=== PATIENT | female | born 1970 | race Caucasian/White ===

== ENCOUNTER 2024-06-27 07:55 | Day surgery (SDC) | payer OTHER ==
[2024-06-24 08:39] VITALS: BP 116/75
[~2024-06-27] VITALS: Ht 167.6 cm; Wt 69.0 kg
[~2024-06-27 07:55] MED LIST: CANDICIDAL CAP1 EACH PO; CLONAZEPAM2 MG PO; DHEA25 MG PO; IBLOOD GLUCOSE TEST STRIP 1 EA TEST VI PRN; LACTATED RINGER'S 1,000 ML IV SCH; LEXAPRO20 MG PO; LIDOCAINE HCL 1% 5 ML SDV INJ ONE; MOVE FREE ULTR1 EAC2 PO; MULTI VITAMIN1 EACH PO
[2024-06-27 08:06] VITALS: BP 122/75
[2024-06-27] MEDS ORDERED: [UNRECOGNIZED DRUG - OTHER] PO (08:12)
[2024-06-27] MEDS ORDERED: [UNRECOGNIZED DRUG - CODE] PO (08:13)
[2024-06-27] MEDS ORDERED: [UNRECOGNIZED DRUG - OTHER] PO (08:14)
[2024-06-27] MEDS ORDERED: [UNRECOGNIZED DRUG - OTHER] PO (08:15)
[2024-06-27] MEDS ORDERED: ondansetron HCL 4 MG/2 ML VIAL ONE (09:01)
[2024-06-27] MEDS ORDERED: propofoL 200 MG/20 ML VIAL ONE (09:01)
[2024-06-27] MEDS ORDERED: fentaNYL citrate 100 MCG/2 ML VIAL ONE (09:01)
[2024-06-27] MEDS ORDERED: LIDOCAINE HCL 2% 5 ML SDV ONE (09:01)
--- NOTE | 2024-06-27 09:56 | NUR ---
06/27/24 0956 Jailyn Christian 0950 PT ARRIVED TO PACU AWAKE AND TALKING TO RN. PT ENCOURAGED TO PASS GAS NEEDED. VSS. 0956 PT RESTING WITH EYE CLOSED.
--- NOTE | 2024-06-27 10:10 | NUR ---
0910 AMB TO BR VOIDS QS. DRINKING WATER.
[2024-06-27 10:27] VITALS: BP 112/79
--- NOTE | 2024-06-27 18:15 | OR ---
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 POSTOPERATIVE DIAGNOSES: 1. Mild antral gastritis, CLOtest negative (no H pylori). 2. Normal colon to cecum. PROCEDURES: 1. Esophagogastroduodenoscopy with biopsy. 2. Total colonoscopy to cecum. ANESTHESIA: Intravenous sedation, propofol; Fei Green CRNA INDICATIONS FOR THE PROCEDURE: This 54-year-old white woman is a patient of ANMOL Ashraf. Her daughter Mary, is known to me from the past having undergone bowel resection for Crohn disease and has difficult Crohn disease management in fact. She was recently tested for Sanchez syndrome and found to be positive. On that basis, the patient herself underwent Sanchez testing and was found to be positive as well. Notably, she underwent colonoscopy by me in May 2022 essentially two years ago, which was negative. NCCN guidelines recommend upper endoscopy and colonoscopy under these circumstances. She is to undergo upper endoscopy to assess for upper gastrointestinal polyps or malignancy as well as colonoscopy. The risk of bleeding, infection, and perforation were reviewed with her. She understands and wished to proceed. FINDINGS: Upper endoscopy showed no sign of polyps or neoplasm. There was mild antral gastritis, but no ulceration. CLOtest was negative. On colonoscopy, the prep was good. Complete colonoscopy was undertaken to the cecum, showing no sign of polyps, diverticular formation, colitis, or cancer. DESCRIPTION OF PROCEDURE: The patient was brought to the surgical endoscopy suite and placed in the lateral Electronically Signed By: HUAN BRYSON MD 06/27/24 1815 PATIENT NAME: TRAVIS DOSS OPERATIVE REPORT DATE OF : 72 REPORT #: [id number] PHYSICIAN: HUAN BRYSON MD PCP: WANG LA PA-C REPORT IS CONFIDENTIAL AND NOT TO BE RELEASED WITHOUT AUTHORIZATION [facility] [address] [place], [place] [address] Signed decubitus position given intravenous sedation with propofol sedation technique given the patient's preference and issues related to more conventional IV sedation. After satisfactory sedation, a bite block was placed and an Olympus video upper endoscope passed into the hypopharynx. The arytenoid cartilage appeared to be somewhat asymmetric. The vocal cord function appeared to be normal. The scope was advanced to the esophagus, throughout its length it was normal. The scope was passed to the stomach and ultimately to the duodenum, which was also normal. There was no evidence to duodenal polyps, gastric polyps, or other issue. The pylorus was normal. Biopsies were taken of the antrum as there was mild antral gastritis, but no ulceration. Retroflexed view showed a somewhat poor flap valve, but the proximal stomach showed no polyps or other abnormality. The scope was withdrawn to the distal esophagus, which was essentially normal. Further withdrawal showed no other abnormalities. Plans were then made for colonoscopy. Digital rectal examination was performed, which was normal. An Olympus video colonoscope was passed in the rectum and manipulated throughout the colon, ultimately intubating the cecum itself. The ileocecal valve and appendiceal orifice were normal. The scope was withdrawn from that point with careful inspection, particularly on the right side, again showing no polyps or other abnormality. Retroflexed view of the rectum was normal. Scope was removed, and the patient was taken to the recovery room in good condition. CONCLUDING DIAGNOSES: 1. Mild antral gastritis without polyps or neoplasm. 2. Normal colon. PLAN: We would recommend repeat colonoscopy in one year based on NCCN guidelines. This includes colonoscopy annually after age 40. As regard to the stomach, repeat upper endoscopy every 2-4 years is recommended by NCCN guidelines. As regard to endometrial cancer, consideration is made for endometrial biopsy every 1-2 years starting at age 35 or prophylactic hysterectomy and bilateral salpingo-oophorectomy given her age of 54. Prophylactic bilateral salpingo-oophorectomy is recommended as regard to ovarian cancer prevention. Annual urinalysis starting at age 35 to detect microscopic hematuria is recommended and consideration of MRI or MRCP at age 51 if she has family history of pancreatic cancer (to my knowledge, she does not). Aspirin therapy long-term has been considered a possible benefit in reducing polyps, and I will initiate aspirin 81 mg daily at this time. Electronically Signed By: HUAN BRYSON MD 06/27/24 1815 PATIENT NAME: TRAVIS DOSS OPERATIVE REPORT DATE OF : 72 REPORT #: [id number] PHYSICIAN: HUAN BRYSON MD PCP: WANG LA PA-C REPORT IS CONFIDENTIAL AND NOT TO BE RELEASED WITHOUT AUTHORIZATION [facility] [address] [place], [place] [address] Signed MD GARRETT Cisneros/MODL /[id number] cc: ANMOL Ashraf Copies: ~ Electronically Signed By: HUAN BRYSON MD 06/27/24 1815 PATIENT NAME: TRAVIS DOSS OPERATIVE REPORT DATE OF : 72 REPORT #: [id number] PHYSICIAN: HUAN BRYSON MD PCP: WANG LA PA-C REPORT IS CONFIDENTIAL AND NOT TO BE RELEASED WITHOUT AUTHORIZATION
== END 2024-06-27 10:45 | disposition home or self-care (01) ==
LOC: DS 07:55
PROVIDERS: ATTEND Surgery
PROC: 0DB68ZX Excision of Stomach, Via Natural or Artificial Opening Endoscopic, Diagnostic (ICD-10-PCS; principal; 2024-06-27 08:50)
PROC: 0DJD8ZZ Inspection of Lower Intestinal Tract, Via Natural or Artificial Opening Endoscopic (ICD-10-PCS; 2024-06-27 08:50)
DX: K29.50 Unspecified chronic gastritis without bleeding (principal); Z84.81 Family history of carrier of genetic disease; Z83.79 Family history of other diseases of the digestive system; Z88.2 Allergy status to sulfonamides; Z79.899 Other long term (current) drug therapy; Z80.0 Family history of malignant neoplasm of digestive organs
CPT/HCPCS: 00813; J2003; J2405; J2704; J3010; J7121

== ENCOUNTER 2024-07-29 07:20 | Day surgery (SDC) | payer OTHER ==
[2024-07-24 15:53] VITALS: BP 11/60
[~2024-07-29] VITALS: Ht 167.6 cm; Wt 68.0 kg
[~2024-07-29 07:20] MED LIST changes: +ADULT ASPIRIN R81 MG PO; +[UNRECOGNIZED DRUG - CODE] PO; +[UNRECOGNIZED DRUG - OTHER] PO; +[UNRECOGNIZED DRUG - OTHER] PO; +[UNRECOGNIZED DRUG - OTHER] PO
--- NOTE | 2024-07-29 07:38 | NUR ---
PT NOT AVAILABLE FOR VISIT. PROVIDED PRAYER.
[2024-07-29 07:41] VITALS: BP 126/75
[2024-07-29] MEDS ORDERED: LIDOCAINE HCL 2% 5 ML SDV ONE (08:26)
[2024-07-29] MEDS ORDERED: propofoL 200 MG/20 ML VIAL ONE (08:26)
[2024-07-29] MEDS ORDERED: fentaNYL citrate 100 MCG/2 ML VIAL ONE (08:27)
[2024-07-29] MEDS ORDERED: MIDAZOLAM HCL 2 MG/2 ML VIAL ONE (08:27)
[2024-07-29] MEDS ORDERED: ACETAMINOPHEN 1,000 MG/100 ML VIAL ONE (09:12)
[2024-07-29] MEDS ORDERED: ondansetron HCL 4 MG/2 ML VIAL ONE (09:12)
[2024-07-29] MEDS ORDERED: KETOROLAC TROMETHAMINE 30 MG/ML VIAL ONE (09:12)
[2024-07-29] MEDS ORDERED: ondansetron HCL 4 MG/2 ML VIAL IV PRN (10:15)
[2024-07-29] MEDS ORDERED: NALOXONE HCL 0.4 MG SYR IV PRN (10:15)
[2024-07-29] MEDS ORDERED: MAGNESIUM HYDROXIDE/AL HYDROX 30 ML CUP PO PRN (10:15)
[2024-07-29] MEDS ORDERED: OXYCODONE/APAP 5/325 TAB PO PRN (10:15)
[2024-07-29] MEDS ORDERED: FAMOTIDINE 20 MG/ 2 ML VIAL IV PRN (10:15)
[2024-07-29 11:02] VITALS: BP 125/81
--- NOTE | 2024-07-29 11:08 | NUR ---
07/29/24 1108 Haily Frost 0950- PT PRESENTS TO PACU, SEMI WILSON POSITION. VERY DROWSY BUT WAKES AND ANSWERS QUESTIONS. DENIES PAIN AND NAUSEA. LR INFUSING TO LH IV. BREATHING EVEN AND NON LABORED. ABD SOFT AND NON DISTENDED. NO VAGINAL BLEEDING, ALL MONITORS IN PLACE.
[2024-07-29] MEDS ORDERED: IBUPROFEN 800 MG TAB PO SCH (14:00)
--- NOTE | 2024-07-31 10:05 | PATH ---
[facility] [address] [place], [place] [address] Signed SPECIMEN(S): A ENDOMETRIAL CURETTINGS SPECIMEN SOURCE: A. ENDOMETRIAL CURETTINGS CLINICAL HISTORY: Pap smear HPV; cervical cancer screening. FINAL PATHOLOGIC DIAGNOSIS: Endometrium, curettage: - Fragments of smooth muscle, no endometrium present for evaluation BRP MICROSCOPIC EXAMINATION: Histologic sections of all submitted blocks are examined by light microscopy. These findings, together with the gross examination, support the pathologic diagnosis. GROSS DESCRIPTION: The specimen, labeled and designated "Milka Wesley, endometrial curettings," is received in formalin and consists of multiple fragments of soft haley-red tissue measuring 1.9 x 0.8 x 0.4 cm in aggregate. Entirely submitted in (A1). AB (under the direct supervision of a pathologist) The Gross Description was prepared using a voice recognition system. The report was reviewed for accuracy; however, sound-alike word errors, addition and/or deletions may occur. If there is any question about this report, please contact Client Services. ADDITIONAL NOTES: Immunohistochemical and/or in situ hybridization studies if performed in this case included appropriate positive controls that reacted as expected. This test was developed and its performance characteristics determined by [facility]. It has not been cleared or approved by the U.S. Food and Drug Administration. The FDA has determined that such clearance or approval is not necessary. This test is used for clinical purposes. It should not be regarded as investigational or for research. [facility] is certified under the Clinical Laboratory Improvement Amendments of 1988 (CLIA) as qualified to perform high complexity clinical laboratory testing. PATIENT NAME: TRAVIS WESLEY PATHOLOGY DATE OF : 72 REPORT #: [id number] PHYSICIAN: ARTIE FINN PCP: WANG LA PA-C REPORT IS CONFIDENTIAL AND NOT TO BE RELEASED WITHOUT AUTHORIZATION [facility] [address] [facility] [place] [address] Signed PERFORMING LABORATORY: Technical component was performed by [facility], [address] [place] [address] (CLIA# [id number]). Professional interpretation was performed by [facility] - [facility], [address] [place] [address] (CLIA#: [id number]). Diagnostician: Joseph Cisneros MD Pathologist Electronically Signed 07/31/2024 Copies: ~ PATIENT NAME: TRAVIS WESLEY PATHOLOGY DATE OF : 72 REPORT #: [id number] PHYSICIAN: ARTIE FINN PCP: WANG LA PA-C REPORT IS CONFIDENTIAL AND NOT TO BE RELEASED WITHOUT AUTHORIZATION
--- NOTE | 2024-08-19 10:14 | OR ---
[facility] [address] [place], [place] [address] Signed DATE OF OPERATION: 07/29/2024 SURGEON: Ethan Lema DO PREOPERATIVE DIAGNOSES: 1. Large fibroid uterus. 2. Sanchez syndrome. POSTOPERATIVE DIAGNOSES: 1. Large fibroid uterus. 2. Sanchez syndrome. PROCEDURE PERFORMED: 1. Hysteroscopy, dilatation and curettage. 2. Pap under anesthesia. ANESTHESIA: MAC. ESTIMATED BLOOD LOSS: 30 mL. FLUID DEFICIT: 1180 mL. SPECIMENS: Endometrial curettings and fibroid. FINDINGS: Normal external genitalia with normal clitoris, urethral meatus, bilateral Uncertain's, and Bartholin's glands. Normal vagina and cervix. On hysteroscopy, distorted uterine cavity with large intramural/submucosal fibroid. The endometrium appears thick. COMPLICATIONS: None. INDICATIONS: Ms. Wesley is a very pleasant 54-year-old G5, P4 female. Her daughter was diagnosed with Sanchez syndrome at the [facility], which spurred genetic testing for the remainder of the family and Travis was also positive. The [facility] recommended screening pelvic Electronically Signed By: ETHAN LEMA DO (JD) 08/19/24 1014 PATIENT NAME: TRAVIS WESLEY OPERATIVE REPORT DATE OF : 72 REPORT #: [id number] PHYSICIAN: ETHAN LEMA DO (JD) PCP: WANG LA PA-C REPORT IS CONFIDENTIAL AND NOT TO BE RELEASED WITHOUT AUTHORIZATION [facility] [address] [facility] [place], [place] [address] Signed ultrasound and a large fibroid uterus was instantly noted 15.5 x 12.2 x 8.8 cm with a large heterogeneous fibroid 12.1 x 11.6 x 9.2 cm. The benign appearing ovaries. The patient denied any abnormal or perimenopausal bleeding. She has severe anxiety for medical information or procedures. Recommended hysteroscopy, D and C to evaluate endometrium. She is due for a Pap smear. Eventually, she will move towards risk reducing hysterectomy with bilateral salpingo-oophorectomy. Risks, benefits, and alternatives were discussed in detail with the patient. The patient understands and wished to proceed with the procedure. DESCRIPTION OF PROCEDURE: The patient was taken to the OR. A time-out was performed to confirm correct patient and correct procedure. MAC anesthesia was adequately established. The patient was prepped and draped in the dorsal lithotomy position with her feet in Yellofin stirrups. ICPs were on and running. No preoperative antibiotics were indicated. A weighted speculum was placed in the vagina and the anterior lip of the cervix was grasped with Allis clamp. The cervix was gently dilated using Hegar dilators. An operative hysteroscope was then placed inside the cervical os and advanced under direct visualization into the uterine cavity. The uterine cavity was distorted with large fibroid uterus with intramural/submucosal fibroid noted. Bilateral tubal ostia appeared to be visualized. MyoSure REACH device was selected and endometrial curettings and biopsy of the fibroid was performed. The fluid deficit quickly increased to nearly a 1000 mL and decision was made to abandon any further curettage or debulking of the fibroid with the procedure. Careful evaluation of the cavity was performed that demonstrated no obvious perforation or other complication. The hysteroscope was withdrawn and Allis clamp removed. Total fluid deficit 1180 mL. A Pap smear was performed prior to the patient being prepped and draped. Sponge, needle and instrument counts was correct x2 at the end of the procedure. DO WILLEM Hunter/MODL /[id number] Electronically Signed By: ETHAN LEMA (JD), DO 08/19/24 1014 PATIENT NAME: TRAVIS WESLEY NELI OPERATIVE REPORT DATE OF : 72 REPORT #: [id number] PHYSICIAN: ETHAN LEMA DO (JD) PCP: WANG LA PA-C REPORT IS CONFIDENTIAL AND NOT TO BE RELEASED WITHOUT AUTHORIZATION [address] [place] [address] Signed Copies: ~ Electronically Signed By: ETHAN LEMA (JD), DO 08/19/24 1014 PATIENT NAME: TRAVIS WESLEY OPERATIVE REPORT DATE OF : 72 REPORT #: [id number] PHYSICIAN: ETHAN LEMA) PCP: WANG LA PA-C REPORT IS CONFIDENTIAL AND NOT TO BE RELEASED WITHOUT AUTHORIZATION
== END 2024-07-29 10:40 | disposition home or self-care (01) ==
LOC: OPS 07:20 → DS 07:20 → OPS 09:00
PROVIDERS: ATTEND Obstetrics & Gynecology
PROC: 0UDB8ZZ Extraction of Endometrium, Via Natural or Artificial Opening Endoscopic (ICD-10-PCS; principal; 2024-07-29 09:00)
DX: D25.1 Intramural leiomyoma of uterus (principal); D25.0 Submucous leiomyoma of uterus; F41.9 Anxiety disorder, unspecified; Z15.09 Genetic susceptibility to other malignant neoplasm; Z78.0 Asymptomatic menopausal state; Z88.2 Allergy status to sulfonamides; Z79.899 Other long term (current) drug therapy
CPT/HCPCS: 00952; J0131; J1885; J2003; J2250; J2405; J2704; J3010; J7121